=== PATIENT | male | born 1945 | race Caucasian/White ===

== ENCOUNTER 2023-08-15 14:08 | Emergency (ER) | payer MEDICARE, SELFPAY ==
--- NOTE | ~2023-08-15 | XR_ITS ---
EXAMINATION: XR chest 2V DATE: 08/15/2023 19:05 INDICATION: Upper respiratory infection. TECHNIQUE: Frontal and lateral views of the chest were obtained. COMPARISON: None. FINDINGS: There is no pneumonia, pleural effusion, or pneumothorax. The heart size is normal. There i s a left chest wall pacer with leads in the right atrium and right ventricle. There is mild chronic a nterior wedging of multiple thoracic vertebral bodies. IMPRESSION: 1. No acute cardiopulmonary disease. Reviewed, dictated and finalized at location E. 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
--- NOTE | ~2023-08-15 | CT_ITS ---
EXAMINATION: CT soft tissue neck w con DATE: 08/15/2023 19:16 INDICATION: Dysphagia. TECHNIQUE: Computed tomography (CT) of the neck was performed with 75 mL Omnipaque-350 intravenous co ntrast. Automated exposure control and iterative reconstruction technique were employed. The dose-gary gth product was 579.97 mGy-cm. COMPARISON: None FINDINGS: There is mucosal thickening in the paranasal sinuses. There is dependent fluid in the maxil emily sinuses. The mastoid air cells are normal. The orbits are normal. There is exuberant ossificatio n of right stylohyoid ligament. There are no pathologically enlarged lymph nodes. There is plaque in the proximal internal carotid arteries with less than 50% stenosis relative to normal distal artery l umen diameters. There is a left chest pacer. There is severe cervical spondylosis. IMPRESSION: 1. No specific etiology for the patient's symptoms. Reviewed, dictated and finalized at location E. 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
[2023-08-15 14:41] VITALS: BP 142/68; PULSE 64; RESP 18; TEMP 36.8; O2SAT 97
--- NOTE | 2023-08-15 18:01 | ECG_ITS ---
Measurements Intervals [place] Rate: 64 P: [place]: 0 QRS: -72 QRSD: 210 T: 106 QT: 476 QTc: 494 Interpretive Statements ELECTRONIC VENTRICULAR PACEMAKER ATYPICAL ECG NO PREVIOUS ECG AVAILABLE FOR COMPARISON Electronically Signed On 08-16-2023 8:02:22 [facility] FLAKER by Ahsan Gould M.D.
--- NOTE | 2023-08-15 18:02 | ED.GENADULT ---
HPI - General Adult General Chief complaint: Unspecified Stated complaint: trouble swallowing, hiccups, congestion Time Seen by Provider: 08/15/23 16:57 Source: patient Mode of arrival: ambulatory Limitations: no limitations History of Present Illness HPI narrative: Is a 78-year-old male who presents the ED with multiple complaints. Patient reports he has been sick for the last 10 days with URI symptoms, including cough, congestion, rhinorrhea. Over the last couple of days he has had indigestion and what he describes as hiccuping/belching, intermittent burning in chest. Denies chest pain. Denies difficulty breathing. He has seen his primary care doctor for this and was prescribed doxycycline, Protonix, Reglan. He denies any significant change in symptoms with these medications. Today at lunch, he began having mild difficulty swallowing. [place] as though things were getting stuck in his throat, reported recurrent burning in throat/chest, Which prompted his presentation. Denies any symptoms upon my evaluation. States he has been able to swallow normally since lunchtime. Denies vomiting. Denies fevers. Related Data Allergies Allergy/AdvReac Type Severity Reaction Status Date / Time Penicillins Allergy Unknown Verified 08/15/23 14:10 Review of Systems Review of Systems: CONSTITUTIONAL: Denies fever, chills, or sweats. ENT: See HPI. CARDIOVASCULAR: See HPI. RESPIRATORY: See HPI. GASTROINTESTINAL: Denies abdominal pain, nausea, vomiting. All systems reviewed & are unremarkable except as noted in HPI and below Exam Narrative: GENERAL: Well appearing, well-nourished, non-toxic, in no acute distress. HEAD: Normocephalic, atraumatic. ENT: Mucous membranes are moist. No significant tonsillar hypertrophy or exudate. Uvula midline. No posterior pharynx erythema. No foreign body noted. Airway patent. No stridor. TMs are clear bilaterally. RESPIRATORY: Airway patent, respirations nonlabored. Clear to auscultation bilaterally, no rales, rhonchi, wheezing. CARDIOVASCULAR: Regular rate and rhythm without murmurs, rubs, or gallops. MUSCULOSKELETAL: Moves all extremities. No gross deformities. SKIN: Warm, dry, normal color. NEURO: A&O X3. Speech clear. Cranial nerves II-XII grossly intact. No ataxic movements. PSYCHIATRIC: Appropriate mood and affect. Normal interaction. Course Vital Signs Vital signs: Vital Signs Temperature 98.2 F 08/15/23 14:41 Pulse Rate 64 08/15/23 14:41 Respiratory Rate 18 08/15/23 14:41 Blood Pressure 142/68 H 08/15/23 14:41 Pulse Oximetry 97 08/15/23 14:41 Oxygen Delivery Room Air 08/15/23 14:41 Temperature 98.2 F 08/15/23 14:41 Pulse Rate 66 08/15/23 20:31 Respiratory Rate 16 08/15/23 20:31 Blood Pressure 138/80 08/15/23 20:31 Pulse Oximetry 99 08/15/23 20:31 Oxygen Delivery Room Air 08/15/23 14:41 Medical Decision Making MDM Narrative Medical decision making narrative: Patient presented to ED with belching, indigestion, hiccups, URI symptoms X 10 days, dysphagia today. Vitals stable upon arrival. Patient in no acute distress. Exam unremarkable. COVID testing resulted positive. This does fit with patient's clinical symptoms. CBC with leukocytosis of 11.4. Otherwise unremarkable. CMP unremarkable. EKG showing paced rhythm, nonischemic. Troponin negative. Chest x-ray clear. CT soft tissue neck also unremarkable. No evidence of airway compromise, swelling, foreign body, tonsillar abnormality. Patient was updated on lab and imaging results. He does report mild improvement of symptoms after GI cocktail in the ED, states they are not as noticeable to him. He was started on Protonix this week by his primary care doctor. Advised to continue this, close follow-up, recommended continued cough and cold symptom management related to COVID. Advised to continue monitoring symptoms, discussed strict return precautions should breathing or
[2023-08-15] MEDS: BELLADONNA ALK/PHENOB ELIX 10 ML, MAG HYDROX/ALUMINUM HYD/SIMETH 30 ML, LIDOCAINE HCL 2... PO (18:15)
[2023-08-15 18:21] LABS: Basophils Absolute Auto 0.1 K/mm3 (0.0-0.1); Basophils Percent Auto 0.9 % (0.2-1.2); Eosinophils Absolute Auto 0.3 K/mm3 (0-0.3); Hematocrit 42.7 % (42.0-52.0); Hemoglobin 14.2 g/dL (14.0-18.0); Immature Granulocyte Absolute 0.09 K/mm3 (0.00-0.031); Immature Granulocyte Percent A 0.8 % (0-0.5); Lymphocytes Absolute Auto 1.46 K/mm3 (0.9-3.2); Lymphocytes Percent Auto 12.8 % (18.3-44.2); Mean Corpuscular HGB Conc 33.3 g/dl (32-36); Mean Corpuscular Hemoglobin 29.3 pg (26-34); Mean Corpuscular Volume 88.2 fl (80-100); Mean Platelet Volume 9.1 fl (7.4-10.4); Monocytes Absolute Auto 0.9 K/mm3 (0.1-0.6); Monocytes Percent Auto 8.3 % (2.6-8.5); Neutrophils Absolute Auto 8.5 K/mm3 (1.3-6.7); Neutrophils Percent Auto 74.2 % (45.5-73.1); Platelet Count Result 208 k/mm3 (150-375); Red Blood Count 4.84 M/mm3 (4.6-6.20); Red Cell Distribution Width 13.5 % (11.5-14.5); White Blood Count 11.4 K/mm3 (4.5-10.0)
[2023-08-15 18:33] LABS: Alanine Aminotransferase 38 U/L (6-50); Albumin Level 4.4 g/dL (3.5-5.1); Alkaline Phosphatase 104 U/L (38-126); Anion Gap 8 mmol/L (8-16); Aspartate Amino Transferase 31 U/L (17-59); Blood Urea Nitrogen 18 mg/dL (9-20); Calcium 9.7 mg/dL (8.4-10.2); Carbon Dioxide 29 mmol/L (22-30); Chloride 101 mmol/L (98-107); Estimated CRCL calculation 45 ml/min; Estimated Glomerular Filt Rate 59; Glucose 105 mg/dL (65-110); Sodium 138 mmol/L (137-145)
[2023-08-15 18:45] LABS: Troponin I < 0.012 ng/mL (0.000-0.034)
[2023-08-15 18:58] LABS: Influenza A QL RT-PCR Negative (Negative); Influenza B QL RT-PCR Negative (Negative); RSV RNA, RT-PCR Negative (Negative); SARS-CoV-2 RNA PCR Positive (Negative)
[2023-08-15 20:31] VITALS: BP 138/80; PULSE 66; RESP 16; O2SAT 99
== END 2023-08-15 20:32 | disposition home or self-care (01) ==
PROVIDERS: Emergency Provider Physician Assistant; PCP Internal Medicine
DX: U07.1 COVID-19 (principal); R13.10 Dysphagia, unspecified; Z95.0 Presence of cardiac pacemaker
CPT/HCPCS: 36415; 70491; 71046; 80053; 84484; 85025; 87637; 93005; 99284; A9270; Q9967